=== PATIENT | female | born 1990 | race Hispanic/Latino ===

== ENCOUNTER → 2018-12-21 | Outpatient (CLI) | payer OTHER | END | disposition home or self-care (01) | LOC: OIH 14:05 | PROVIDERS: ATTEND Internal Medicine | DX: M54.5 Low back pain (principal) | CPT/HCPCS: 72100 ==

== ENCOUNTER → 2019-08-13 | Outpatient (CLI) | payer MEDICAID | END | disposition home or self-care (01) | LOC: LAB 12:12 | PROVIDERS: ATTEND Internal Medicine Gastroenterology | DX: R19.7 Diarrhea, unspecified (principal); R10.32 Left lower quadrant pain | CPT/HCPCS: 87507 ==

== ENCOUNTER 2020-02-15 20:48 | Emergency (ER) | payer MEDICAID ==
[2020-02-15 21:17] LABS: BASOPHILS % (AUTO) 0.7 % (0.0-5.0); EOSINOPHILS % (AUTO) 2.4 % (0.0-8.0); HEMATOCRIT 33.1 % (36-48); LYMPHOCYTES % (AUTO) 21.3 % (21.0-51.0); MEAN CORPUSCULAR HEMOGLOBIN 26.6 pg (27.0-33.0); MEAN CORPUSCULAR HGB CONC 31.1 g/dL (32.0-36.0); MEAN CORPUSCULAR VOLUME 85.5 fL (79-99); NEUTROPHILS % (AUTO) 68.3 % (40.0-77.0); PLATELET COUNT (AUTO) 388 K/uL (130-400); RED BLOOD CELL COUNT(AUTO) 3.87 MIL/uL (4.00-5.50); RED CELL DISTRIBUTION WIDTH 15.3 % (11.0-15.5); WHITE BLOOD COUNT (AUTO) 5.7 K/uL (4.8-10.8)
[2020-02-15 21:27] LABS: CREATININE 0.8 mg/dL (0.5-1.5)
[2020-02-15 21:29] LABS: INR 1.01 (0.85-1.15); PARTIAL THROMBOPLASTIN TIME 25.1 SEC (26.3-35.5); PROTHROMBIN TIME 10.9 SEC (9.6-11.6)
[2020-02-15 21:32] LABS: ALBUMIN 2.9 g/dL (3.5-5.0); BILIRUBIN,TOTAL 0.2 mg/dL (0.2-1.0); TOTAL PROTEIN, SERUM 6.4 g/dL (6.0-8.3)
[2020-02-15 21:33] LABS: POTASSIUM 2.4 mmol/L (3.5-5.1)
[2020-02-15] MEDS ORDERED: POTASSIUM CHLORIDE 20 MEQ ERTAB PO ONE (22:49)
== END 2020-02-16 00:57 | disposition home or self-care (01) ==
LOC: EDH 20:48
DX: K62.5 Hemorrhage of anus and rectum (principal); E87.6 Hypokalemia; G89.29 Other chronic pain; F41.9 Anxiety disorder, unspecified; Z88.6 Allergy status to analgesic agent
CPT/HCPCS: 36415; 80053; 85025; 85610; 85730

== ENCOUNTER 2022-03-20 05:29 | Inpatient (IN) | payer MEDICAID, OTHER ==
[~2022-03-20] VITALS: Ht 162.6 cm; Wt 40.8 kg
[2022-03-20] MEDS ORDERED: M.V.I. IV [ADULT] 10 ML, FOLIC ACID 1 MG, THIAMINE HCL 100 MG in 0.9%NACL 1000ML 1,000 ML IV SCH (06:00)
[2022-03-20] MEDS ORDERED: THIAMINE HCL 100 MG/ML 2ML VIAL ONE (06:01)
[2022-03-20 06:02] LABS: BASOPHILS % (AUTO) 0.7 % (0.0-5.0); EOSINOPHILS % (AUTO) 1.4 % (0.0-8.0); HEMATOCRIT 22.6 % (36-48); LYMPHOCYTES % (AUTO) 18.4 % (21.0-51.0); MEAN CORPUSCULAR HEMOGLOBIN 31.4 pg (27.0-33.0); MEAN CORPUSCULAR HGB CONC 33.6 g/dL (32.0-36.0); MEAN CORPUSCULAR VOLUME 93.4 fL (79-99); MONOCYTES % (AUTO) 2.4 % (3.0-13.0); NEUTROPHILS % (AUTO) 76.6 % (40.0-77.0); NUCLEATED RED BLOOD CELLS 0.5 % (0.0-0.19); PLATELET COUNT (AUTO) 189 K/uL (130-400); RED BLOOD CELL COUNT(AUTO) 2.42 MIL/uL (4.00-5.50); RED CELL DISTRIBUTION WIDTH 20.8 % (11.0-15.5); WHITE BLOOD COUNT (AUTO) 4.2 K/uL (4.8-10.8)
[2022-03-20] MEDS ORDERED: M.V.I. IV [ADULT] 10 ML VIAL IV ONE (06:03)
[2022-03-20] MEDS ORDERED: FOLIC ACID 5 MG/ML VIAL ONE (06:03)
[2022-03-20 06:08] LABS: APPEARANCE,URINE CLEAR (CLEAR); BILIRUBIN,URINE 1 mg/dL (NEGATIVE); COLOR,URINE DARK-YELLOW (YELLOW); GLUCOSE, URINE (UA) NEGATIVE (NEGATIVE); KETONES,URINE NEGATIVE (NEGATIVE); LEUKOCYTE ESTERASE ,URINE NEGATIVE Leu/uL (NEGATIVE); NITRATE,URINE NEGATIVE (NEGATIVE); OCCULT BLOOD,URINE MODERATE (NEGATIVE); PROTEIN,URINE 10 mg/dL (NEGATIVE)
[2022-03-20 06:11] LABS: HCG,QUALITATIVE URINE NEGATIVE (NEGATIVE)
[2022-03-20 06:12] LABS: AMPHET/METH SCREEN,URINE NEGATIVE (NEGATIVE); BARBITURATE SCREEN, URINE NEGATIVE (NEGATIVE); BENZODIAZEPINES SCREEN,URINE POSITIVE (NEGATIVE); CANNABINOID SCREEN,URINE NEGATIVE (NEGATIVE); COCAINE SCREEN,URINE NEGATIVE (NEGATIVE); PHENCYCLIDINE SCREEN,URINE NEGATIVE (NEGATIVE)
[2022-03-20] MEDS ORDERED: ONDANSETRON 4MG INJ ONE (06:12)
[2022-03-20 06:16] LABS: PARTIAL THROMBOPLASTIN TIME 41.9 SEC (26.3-35.5)
[2022-03-20 06:17] LABS: ALBUMIN 1.8 g/dL (3.5-5.0); CREATININE 0.8 mg/dL (0.5-1.5); TOTAL PROTEIN, SERUM 4.8 g/dL (6.0-8.3)
[2022-03-20 06:18] LABS: POTASSIUM 1.7 mmol/L (3.5-5.1)
[2022-03-20 06:21] LABS: MUCUS,URINE RARE LPF (None Seen); RBC,URINE 0-1 /HPF (0-1); SQUAMOUS EPITHELIAL CELL,UR RARE /HPF (0-2)
[2022-03-20] MEDS ORDERED: POTASSIUM CHLORIDE 20MEQ/100ML 100 ML IV ONE (06:23)
[2022-03-20 06:32] LABS: INR 5.93 (0.85-1.15); PROTHROMBIN TIME 58.4 SEC (9.6-11.6)
[2022-03-20] MEDS ORDERED: KCL 20 MEQ ERTAB PO ONE ×2 (06:45→07:00)
[2022-03-20] MEDS: POTASSIUM CHLORIDE 20MEQ/100ML 100 ML IV SCH ×2 (06:56→09:17)
[2022-03-20] MEDS ORDERED: POTASSIUM CHLORIDE 20 MEQ/100 ML BAG IV SCH (07:00)
[2022-03-20] MEDS ORDERED: POTASSIUM CHLORIDE 20MEQ/10ML 10 MEQ in 0.9%NACL 50ML 50 ML IV SCH (07:30)
[2022-03-20] MEDS ORDERED: PHYTONADIONE 10 MG/1 ML AMP SQ SCH (07:30)
[2022-03-20] MEDS ORDERED: POTASSIUM CHLORIDE 20MEQ/100ML IV PRN (07:30)
[2022-03-20] MEDS ORDERED: PANTOPRAZOLE 40 MG/VIAL IVP SCH (07:30)
[2022-03-20] MEDS: PANTOPRAZOLE 40MG INJ 80 MG in 0.9%NACL 100ML 100 ML IVP SCH ×2 (07:56→17:10)
[2022-03-20] MEDS ORDERED: MAGNESIUM 2GM PREMIX 50ML 50 ML IV ONE (14:20)
[2022-03-20 14:46] LABS: HEMATOCRIT 24.7 % (36-48)
[2022-03-20 16:50] LABS: SALICYLATE < 2.8 mg/dL (2.8-20.0)
[2022-03-20 16:51] LABS: POTASSIUM 1.9 mmol/L (3.5-5.1)
[2022-03-20 16:52] LABS: ACETAMINOPHEN 76 mcg/mL (10-30)
[2022-03-20 17:11] VITALS: BP 102/46
== END 2022-03-20 17:20 | disposition left against medical advice (07) | DRG 379 ==
LOC: EDH 05:29 → EDHIP 05:30
PROVIDERS: ADMIT Family Medicine; ATTEND Family Medicine
DX: K92.2 Gastrointestinal hemorrhage, unspecified (principal); D50.0 Iron deficiency anemia secondary to blood loss (chronic); E87.6 Hypokalemia; Z20.822 Contact with and (suspected) exposure to COVID-19; F10.229 Alcohol dependence with intoxication, unspecified; K70.30 Alcoholic cirrhosis of liver without ascites; F41.9 Anxiety disorder, unspecified; K21.9 Gastro-esophageal reflux disease without esophagitis
CPT/HCPCS: 36415; 71045; 74176; 80053; 80305; 81001; 81025; 82140; 82270; 83690; 83735; 84132; 85014; 85018; 85025; 85610; 85730; 86850; 86900; 86901; 87635; 93005; 99291; C9113; G0378; G0481; J2405; J3411; J3430; J3475; J3480; J3490; J7030

== ENCOUNTER 2022-04-08 23:11 | Inpatient (IN) | payer OTHER ==
[2022-04-08] MEDS ORDERED: FUROSEMIDE 40MG VIAL IV ONE (23:30)
[2022-04-08 23:35] LABS: BASOPHILS % (AUTO) 0.4 % (0.0-5.0); EOSINOPHILS % (AUTO) 0.4 % (0.0-8.0); LYMPHOCYTES % (AUTO) 23.1 % (21.0-51.0); MEAN CORPUSCULAR HEMOGLOBIN 38.3 pg (27.0-33.0); MEAN CORPUSCULAR HGB CONC 35.6 g/dL (32.0-36.0); MEAN CORPUSCULAR VOLUME 107.4 fL (79-99); NEUTROPHILS % (AUTO) 70.1 % (40.0-77.0); PLATELET COUNT (AUTO) 180 K/uL (130-400); RED BLOOD CELL COUNT(AUTO) 1.49 MIL/uL (4.00-5.50); WHITE BLOOD COUNT (AUTO) 2.5 K/uL (4.8-10.8)
[2022-04-08] MEDS ORDERED: ZOSYN 3.375GM+NS 50ML 50 ML ONE (23:45)
[2022-04-08 23:48] LABS: INR 1.65 (0.85-1.15); PROTHROMBIN TIME 17.5 SEC (9.6-11.6)
[2022-04-08 23:49] LABS: PARTIAL THROMBOPLASTIN TIME 34.1 SEC (26.3-35.5)
[2022-04-08] MEDS ORDERED: POTASSIUM CHLORIDE 20MEQ/100ML 100 ML IV ONE (23:53)
[2022-04-08 23:56] LABS: ALBUMIN 1.5 g/dL (3.5-5.0); CREATININE 0.8 mg/dL (0.5-1.5); CRP QUANTITATIVE 18.7 mg/L (0.00-9.0); MAGNESIUM 1.3 mg/dL (1.80-2.40); POTASSIUM 2.1 mmol/L (3.5-5.1); TOTAL PROTEIN, SERUM 4.5 g/dL (6.0-8.3)
[2022-04-09] MEDS ORDERED: 0.9%NACL 1000ML 1,000 ML IV SCH
[2022-04-09] MEDS ORDERED: POTASSIUM BICARB/CIT AC 25 MEQ TABLET.EFF PO ONE
[2022-04-09] MEDS ORDERED: ZOSYN 3.375GM +NS 50ML IV ONE
[2022-04-09 00:18] LABS: BASOPHILS % (MANUAL) 1 % (0-2); LYMPHOCYTES % (MANUAL) 22 % (22-44); MAN.DIFF COMMENT-IMPRESSION MANUAL DIFFERENTIAL; SEGMENTED NEUTROPHILS % 77 % (40-70)
[2022-04-09 00:23] LABS: PLATELET MORPHOLOGY COMMENT ADEQUATE
[2022-04-09 00:47] LABS: APPEARANCE,URINE CLEAR (CLEAR); BILIRUBIN,URINE NEGATIVE (NEGATIVE); COLOR,URINE YELLOW (YELLOW); GLUCOSE, URINE (UA) NEGATIVE (NEGATIVE); KETONES,URINE NEGATIVE (NEGATIVE); LEUKOCYTE ESTERASE ,URINE NEGATIVE Leu/uL (NEGATIVE); NITRATE,URINE NEGATIVE (NEGATIVE); OCCULT BLOOD,URINE NEGATIVE (NEGATIVE); PH,URINE 5.5 (5.0-8.0); PROTEIN,URINE NEGATIVE (NEGATIVE); UROBILINOGEN,URINE 0.2 mg/dL (0.2-1.0)
[2022-04-09 03:29] LABS: AMPHET/METH SCREEN,URINE NEGATIVE (NEGATIVE); BARBITURATE SCREEN, URINE NEGATIVE (NEGATIVE); BENZODIAZEPINES SCREEN,URINE POSITIVE (NEGATIVE); CANNABINOID SCREEN,URINE NEGATIVE (NEGATIVE); COCAINE SCREEN,URINE NEGATIVE (NEGATIVE); OPIATE SCREEN,URINE NEGATIVE (NEGATIVE); PHENCYCLIDINE SCREEN,URINE NEGATIVE (NEGATIVE)
[2022-04-09] MEDS ORDERED: LACTULOSE 20 GM/30 ML UDCUP PO PRN (03:30)
[2022-04-09] MEDS ORDERED: PHARMACY COMMUNICATION MISC PRN (03:30)
[2022-04-09] MEDS ORDERED: ONDANSETRON 4MG INJ IV PRN (03:30)
[2022-04-09] MEDS ORDERED: LORAZEPAM 2 MG/ML 1 ML VIAL IVP PRN (03:30)
[2022-04-09] MEDS ORDERED: CHLORDIAZEPOXIDE HCL 25 MG CAP PO PRN (03:30)
[2022-04-09] MEDS ORDERED: POTASSIUM CHLORIDE 10% ELIXIR 20 MEQ/15 ML UDCUP PO PRN (04:00)
[2022-04-09] MEDS ORDERED: LIDOCAINE HCL-MPF 1% 2ML VIAL IJ PRN (04:00)
[2022-04-09] MEDS ORDERED: MAGNESIUM 2GM PREMIX 50ML 50 ML IV PRN ×2 (04:00→12:30)
[2022-04-09] MEDS ORDERED: POTASSIUM CHLORIDE 10MEQ/100ML 100 ML IV PRN (04:00)
[2022-04-09] MEDS ORDERED: KCL 20 MEQ ERTAB PO PRN (04:00)
[2022-04-09] MEDS: POTASSIUM CHLORIDE 20 MEQ/100 ML BAG IV SCH ×2 (04:09)
[2022-04-09] MEDS ORDERED: ZOSYN 3.375GM+NS 50ML 50 ML IV SCH (05:00)
[2022-04-09 06:48] LABS: HEMATOCRIT 28.8 % (36-48)
[2022-04-09] MEDS ORDERED: LACTULOSE 20 GM/30 ML UDCUP PO SCH (09:00)
[2022-04-09] MEDS ORDERED: PANTOPRAZOLE 40 MG/VIAL IVP SCH (09:00)
[2022-04-09] MEDS ORDERED: MULTIVITAMIN TABLET PO SCH (09:00)
[2022-04-09] MEDS ORDERED: FOLIC ACID 1 MG TABLET PO SCH (09:00)
[2022-04-09] MEDS ORDERED: THIAMINE HCL 100 MG/ML 2ML VIAL IM SCH (09:00)
[2022-04-09] MEDS ORDERED: ALPR1TAB2 PO (10:40)
[2022-04-09] MEDS ORDERED: GABA-529 PO (10:40)
[2022-04-09] MEDS ORDERED: OMEP40CA21 PO (10:40)
[2022-04-09] MEDS ORDERED: FLUO40CA49 PO (10:40)
[2022-04-09 12:00] VITALS: BP 100/60
[2022-04-09] MEDS ORDERED: POTASSIUM CHLORIDE 20MEQ/100ML 100 ML IV PRN (12:30)
[2022-04-09] MEDS ORDERED: OCTREOTIDE ACETATE 1,250 MCG in 0.9% NACL 250ML 250 ML IV SCH (12:30)
[2022-04-09] MEDS ORDERED: COMPOUND IV REFRIGERATED 1 EACH IVSOLN MISC PRN (13:00)
[2022-04-09] MEDS ORDERED: MIDODRINE HCL 5 MG TABLET PO SCH (14:00)
[2022-04-10] MEDS ORDERED: BUMETANIDE 1 MG TAB PO SCH (09:00)
[2022-04-10] MEDS ORDERED: SPIRONOLACTONE 25 MG TAB PO SCH (09:00)
== END 2022-04-09 14:30 | disposition left against medical advice (07) | DRG 641 ==
LOC: EDH 23:11 → EDHIP 23:12 → 4AH 04-09 08:40
PROVIDERS: ADMIT Internal Medicine; ATTEND Internal Medicine
PROC: 30233N1 Transfusion of Nonautologous Red Blood Cells into Peripheral Vein, Percutaneous Approach (ICD-10-PCS; principal; 2022-04-09)
DX: E87.1 Hypo-osmolality and hyponatremia (principal); E87.20 Acidosis, unspecified; Z20.822 Contact with and (suspected) exposure to COVID-19; D63.8 Anemia in other chronic diseases classified elsewhere; E87.6 Hypokalemia; K70.30 Alcoholic cirrhosis of liver without ascites; F10.20 Alcohol dependence, uncomplicated; F32.A Depression, unspecified
CPT/HCPCS: 36415; 71045; 74176; 80053; 80305; 81003; 82140; 82550; 83605; 83735; 84132; 84484; 84703; 85014; 85018; 85025; 85610; 85730; 86140; 86850; 86900; 86901; 86923; 87040; 87635; 87804; 87880; 93005; C9113; C9803; G0378; J2354; J2543; J3411; J3475; J3480; J7050; P9016